=== PATIENT | female | born 1990 ===

== ENCOUNTER 2023-11-22 18:36 | Emergency (ER) | payer SELFPAY ==
[2023-11-22] MEDS ORDERED: Acetaminophen/Codeine 300-30 MG Tab PO ONE (18:37)
[2023-11-22] MEDS: Acetaminophen/Codeine 300-30 MG Tab PO ONE (20:12)
[2023-11-22] MEDS: Take Home: Clindamycin HCl 150 MG, 12 Cap Pack PO ONE ×2 (20:18→20:24)
[2023-11-22] MEDS: Acetaminophen/Codeine 300-30 MG Tab ONE (20:42)
== END 2023-11-22 20:55 | disposition home or self-care (01) ==
LOC: DL.ED 18:36
DX: N61.0 Mastitis without abscess (principal); Z88.0 Allergy status to penicillin; Z88.2 Allergy status to sulfonamides; Z88.8 Allergy status to other drugs, medicaments and biological substances; Z79.899 Other long term (current) drug therapy
CPT/HCPCS: 99283; A9270

== ENCOUNTER 2023-11-23 13:53 | Observation (INO) | payer SELFPAY ==
[2023-11-23] MEDS: Sodium Chloride 0.9% 10 ML Syringe FLUSH PRN (14:35)
[2023-11-23] MEDS: Sodium Chloride 0.9% 1,000 ML IV ONE ×2 (14:35→15:42)
[2023-11-23] MEDS: Ketorolac 30 MG/ML SDV IVPUSH ONE (14:35)
[2023-11-23] MEDS: Ondansetron 4 MG/2 ML SDV IVPUSH ONE (14:50)
[2023-11-23 14:56] LABS: EOSINOPHILS PERCENT AUTO 0.7 % (1.0-3.0); HEMATOCRIT 39.1 % (37.0-47.0); HEMOGLOBIN 13.3 g/dL (12.0-16.0); LYMPHOCYTES PERCENT AUTO 5.6 % (20.5-50.1); MEAN CORPUSCULAR HEMOGLOBIN 32.6 pg (27.0-34.0); MEAN CORPUSCULAR VOLUME 95.8 fL (80-100); MONOCYTES PERCENT AUTO 4.3 % (2-8); NEUTROPHILS PERCENT AUTO 89.4 % (42.2-75.2); PLATELET COUNT,PLT 307 10^3/uL (150-450); RED BLOOD CELL COUNT 4.08 10^6/uL (4.2-5.4); WHITE BLOOD CELL COUNT,WBC 21.6 10^3/uL (5.0-10.0)
[2023-11-23 15:16] LABS: ALBUMIN 3.3 g/dL (3.4-5.0); ANION GAP 13.9 mEq/L (7-13); BILIRUBIN TOTAL 0.5 mg/dL (0.2-1.0); C-REACTIVE PROTEIN 19.62 ng/dL (<=0.50); CALCIUM 8.1 mg/dL (8.5-10.1); CREATININE 0.86 mg/dL (0.55-1.02); EST CRCL DRUG DOSING (CG) 74.28 mL/min; POTASSIUM,K 2.9 mmol/L (3.5-5.1); PROTEIN TOTAL,TP 7.5 g/dL (6.4-8.2)
[2023-11-23 15:21] LABS: A/G RATIO 0.79
[2023-11-23 15:22] LABS: LACTIC ACID 0.9 mmol/L (0.4-2.0)
[2023-11-23] MEDS: Acetaminophen 500 MG Tab PO ONE (15:27)
[2023-11-23] MEDS: Vancomycin 2 GM in Sodium Chloride 0.9% 500 ML IV ONE (15:28)
[2023-11-23] MEDS: fentaNYL 100 MCG/2 ML SDV IVPUSH ONE (15:42)
[2023-11-23] MEDS ORDERED: Acetaminophen 325 MG Tab PO PRN (16:34)
[2023-11-23] MEDS ORDERED: Ondansetron 4 MG Tab.DIS PO PRN (16:34)
[2023-11-23] MEDS ORDERED: Acetaminophen/oxyCODONE 325-5 MG Tab PO PRN (16:34)
[2023-11-23] MEDS ORDERED: Docusate Sodium 100 MG Cap PO PRN (16:34)
[2023-11-23] MEDS: Gentamicin 400 MG in Sodium Chloride 0.9% 100 ML IV SCH (17:19)
[2023-11-23] MEDS: NS with KCl 40mEq 1,000 ML IV SCH (18:36)
[2023-11-23] MEDS: Ibuprofen 800 MG Tab PO PRN (21:15)
[2023-11-24] MEDS: Acetaminophen/oxyCODONE 325-5 MG Tab PO PRN (02:24)
[2023-11-24 06:38] LABS: BASOPHILS PERCENT AUTO 0.2 % (0.0-1.0); EOSINOPHILS PERCENT AUTO 3.4 % (1.0-3.0); HEMATOCRIT 32.3 % (37.0-47.0); HEMOGLOBIN 10.5 g/dL (12.0-16.0); MEAN CORPUSCULAR HEMOGLOBIN 32.5 pg (27.0-34.0); MEAN CORPUSCULAR HGB CONC 32.5 g/dL (33.0-35.0); NEUTROPHILS PERCENT AUTO 81.4 % (42.2-75.2); PLATELET COUNT,PLT 238 10^3/uL (150-450); RED BLOOD CELL COUNT 3.23 10^6/uL (4.2-5.4); WHITE BLOOD CELL COUNT,WBC 17.4 10^3/uL (5.0-10.0)
[2023-11-24 06:52] LABS: ANION GAP 12.1 mEq/L (7-13); C-REACTIVE PROTEIN 20.28 ng/dL (<=0.50); CREATININE 0.77 mg/dL (0.55-1.02); EST CRCL DRUG DOSING (CG) 82.96 mL/min; POTASSIUM,K 4.1 mmol/L (3.5-5.1)
[2023-11-24 06:59] LABS: MAGNESIUM 1.6 mg/dL (1.8-2.4); VANCOMYCIN RANDOM 19.4 ug/mL (No Normal Range)
[2023-11-24] MEDS: Magnesium Oxide 400 MG Tab PO SCH (08:58)
[2023-11-24] MEDS: Sertraline 50 MG Tab PO SCH (08:58)
[2023-11-24] MEDS ORDERED: Sertraline 50 MG Tab PO SCH (09:00)
[2023-11-25 06:32] LABS: HEMATOCRIT 35.3 % (37.0-47.0); HEMOGLOBIN 11.5 g/dL (12.0-16.0); MEAN CORPUSCULAR HGB CONC 32.6 g/dL (33.0-35.0); MEAN CORPUSCULAR VOLUME 98.3 fL (80-100); PLATELET COUNT,PLT 260 10^3/uL (150-450); RED BLOOD CELL COUNT 3.59 10^6/uL (4.2-5.4); WHITE BLOOD CELL COUNT,WBC 9.2 10^3/uL (5.0-10.0)
[2023-11-25 06:42] LABS: BASOPHILS PERCENT AUTO 0.2 % (0.0-1.0); EOSINOPHILS PERCENT AUTO 8.3 % (1.0-3.0); MONOCYTES PERCENT AUTO 8.3 % (2-8); NEUTROPHILS PERCENT AUTO 57.2 % (42.2-75.2)
[2023-11-25 06:48] LABS: ANION GAP 14.9 mEq/L (7-13); C-REACTIVE PROTEIN 16.06 ng/dL (<=0.50); CALCIUM 8.1 mg/dL (8.5-10.1); CREATININE 0.62 mg/dL (0.55-1.02); EST CRCL DRUG DOSING (CG) 103.03 mL/min; POTASSIUM,K 3.9 mmol/L (3.5-5.1); VANCOMYCIN RANDOM 22.2 ug/mL (No Normal Range)
[2023-11-25 07:33] LABS: EOSINOPHILS PERCENT MAN 7 % (1-3); LYMPHOCYTES PERCENT MAN 23 % (20-50); MONOCYTES PERCENT MAN 10 % (2-8); SEG NEUTROPHILS PERCENT MAN 60 % (42-75)
== END 2023-11-25 09:34 | disposition home or self-care (01) ==
LOC: DL.ED 13:53 → DL.MS 15:49 → INTOOBSV 15:49
PROVIDERS: ADMIT Family Medicine; ATTEND Family Medicine
DX: N61.0 Mastitis without abscess (principal); J45.909 Unspecified asthma, uncomplicated; F41.9 Anxiety disorder, unspecified; L03.818 Cellulitis of other sites; F32.A Depression, unspecified; Z79.899 Other long term (current) drug therapy; Z86.59 Personal history of other mental and behavioral disorders; Z39.2 Encounter for routine postpartum follow-up; Z88.0 Allergy status to penicillin; Z88.2 Allergy status to sulfonamides
CPT/HCPCS: 36415; 76641; 80048; 80053; 80170; 80202; 83605; 83735; 84145; 85025; 86140; 87040; 96361; 96365; 96366; 96367; 96375; 99284; A9270; G0378; J1580; J1885; J2405; J3010; J3370; J3480; J3490; J7030; J7040; J7050